=== PATIENT | male | born 1990 | race Caucasian/White ===

== ENCOUNTER 2019-03-20 09:27 | Emergency (ER) | payer BC ==
--- NOTE | 2019-03-20 09:32 | EDM.PDOC ---
ED HPI GENERAL MEDICAL PROBLEM - General Chief Complaint: Chest Pain Stated Complaint: chest pain, dizziness Time Seen by Provider: 03/20/19 09:27 Source of Information: Reports: Patient. Denies: Old Records (Note patient gave incorrect spelling of his first name with previous medical records to be merged to this record in the future. No Paper chart available.) History Limitations: Reports: No Limitations - History of Present Illness INITIAL COMMENTS - FREE TEXT/NARRATIVE: Patient was brought to the emergency room via private automobile by a coworker secondary to 6/10 left-sided chest pressure, which does radiate into the left shoulder and left arm. His symptoms started while lifting some heavy objects at about 07:00 a.m. this morning with no history of acute injury and similar chest pain-type symptoms on an intermittent basis during the last several months. His chest pain usually lasts for about 3 minutes and is associated with some nausea , diaphoresis, dizziness, and tachycardia. He has not taken any medications for his symptoms to this point. The patient denies any orthostasis, orthopnea, paresthesias, recent decreased exercise tolerance, or any other anginal-type symptoms. No recent history of abdominal pain, heartburn, emesis, diarrhea, melena, gross hematochezia, or any food intolerance, including fatty foods, etc. with normal bowel movement earlier this morning. He denies any gross hematuria, colic, or other UTI symptoms. The patient also denies any recent fever, cough, wheezing, dyspnea, etc.. Onset: Today, Sudden Onset Date: 03/20/19 Onset Time: 07:00 Duration: Intermittent Location: Reports: Chest, Upper Extremity, Left, Radiates to (As above). Denies : Head, Neck, Abdomen, Back, Pelvis, Upper Extremity, Right, Lower Extremity, Left, Lower Extremity, Right Quality: Reports: Pressure, Same as Previous Episode Severity: Moderate Improves with: Reports: None Worsens with: Reports: None Context: Reports: Other (As above). Denies: Sick Contact, Trauma Associated Symptoms: Reports: Chest Pain, Diaphoresis, Nausea/Vomiting (As above ). 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 Denies: Allergic Rhinitis, Hard of Hearing, Retinal Detachment Other HEENT History: Patient wears glasses. Cardiovascular History: Reports: Heart Murmur, Hypertension, Other (See Below). Denies: Aneurysm, Arrhythmia, Blood Clots/VTE/DVT, CAD, Cardiomyopathy, Heart Failure, High Cholesterol, Syncope Other Cardiovascular History: Unknown type of heart murmur initially diagnosed at age 13 but no heart workup to this point. Elevated blood pressure with no history medical therapy. Patient does not know his cholesterol status. Respiratory History: Reports: None. Denies: Asthma, Bronchitis, Recurrent, COPD , Intubation, Difficult, Intubation, Previous, PE, Pneumothorax, Sleep Apnea, TB Gastrointestinal History: Reports: None. Denies: Bowel Obstruction, Celiac Disease, Cholelithiasis, Chronic Constipation, Chronic Diarrhea, Gastritis, GERD , Hepatitis, Inflammatory Bowel Disease, Irritable Bowel Syndrome, Jaundice, Pancreatitis Genitourinary History: Reports: None. Denies: Acute Renal Failure, BPH, Chronic Renal Insuffiency, Renal Calculus, STD, Urinary Incontinence, UTI, Recurrent Musculoskeletal History: Reports: Fracture, Other (See Below). Denies: Amputation, Arthritis, Back Pain, Chronic, Gout, Neck Pain, Chronic, Osteoarthritis, RA, SLE Other Musculoskeletal History: Left Wrist fracture at age 21. Neurological History: Reports: Headaches, Chronic, Migraines, Neuropathy, Peripheral, Other (See Below). Denies: Cerebral Aneurysms, Concussion, CVA, Head Trauma, Parkinson's, Seizure, TIA, Vertigo Other Neuro History: Migraine headaches as a teenager currently not problematic. Psychiatric History: Reports: Addiction, Anxiety, Depression, Panic Attack, Psych Hospitalization(s), Suicidal Ideation, Other (See Below). Denies: Abuse, Victim of, ADD, ADHD, PTSD, Suicide Attempt Other Psychiatric History: Heroin, marijuana, methamphetamines, LSD DNT, ecstasy , cocaine, etc. addiction during ages 18 and 20 with no IV drug use and no use since that time. Continued suicidal ideation without plan with hospitalization for drug addiction at age 20. Alcohol abuse worsened during the last 3 months. Endocrine/Metabolic History: Denies: Diabetes, Type I, Diabetes, Type II, Hypothyroidism, IDDM, Obesity/BMI 30+ Hematologic History: Denies: Anemia, Blood Transfusion(s), Iron Deficiency Immunologic History: Reports: None. Denies: AIDS, HIV, SLE Oncologic (Cancer) History: Reports: None. Denies: Basal Cell Carcinoma, Hodgkin's Lymphoma, Leukemia, Lymphoma, Malignant Melanoma, Non-Hodgkin's Lymphoma, Squamous Cell Carcinoma Dermatologic History: Reports: None. Denies: Eczema, Psoriasis - Infectious Disease History Infectious Disease History: Reports: Chicken Pox. Denies: C-Difficile, Measles , Meningitis, Mononucleosis, MRSA, Mumps, Pertussis (Whooping Cough), Rheumatic Fever, Rubella, Scarlet Fever, Shingles, TB, VRE - Past Surgical History Head Surgeries/Procedures: Reports: None HEENT Surgical History: Reports: Oral Surgery. Denies: Adenoidectomy, Eye Surgery, Laser Surgery, LASIK, Myringotomy w Tube(s), Naso-Sinus Surgery, Tonsillectomy Other HEENT Surgeries/Procedures: Jol[place] teeth extraction 4 about age 13 with multiple teeth extractions Cardiovascular Surgical History: Reports: None. Denies: Varicose Respiratory Surgical History: Reports: None. Denies: Thoracentesis GI Surgical History: Reports: None. Denies: Appendectomy, Cholecystectomy, Colonoscopy, EGD, Hernia, Abdominal, Hernia, Inguinal, Hernia Repair/Other Male Surgical History: Reports: None. Denies: Circumcision, Vasectomy Endocrine Surgical History: Reports: None. Denies: Thyroid Biopsy Neurological Surgical History: Reports: None. Denies: C-Spine, Discectomy, Laminectomy, Lumbar Spine, Sacral Spine, Spinal Fusion, Thoracic Spine, Vertebroplasty Musculoskeletal Surgical History: Reports: None. Denies: Arthroscopic Procedure , Carpal Tunnel, Ganglion Cyst, Joint Replacement, ORIF, Shoulder Surgery Oncologic Surgical History: Reports: None Dermatological Surgical History: Reports: None - Past Imaging History Past Imaging History: Reports: None Social & Family History - Tobacco Use Smoking Status *Q: Current Every Day Smoker Tobacco Use Within Last Twelve Months: Cigarettes Years of Tobacco use: 9 Packs/Tins Daily: 1 Packs/Tins Daily Comment: Started Smoking at age 7. Used Tobacco, but Quit: No Smoking Cessation Information Provided To Patient: Yes Second Hand Smoke Exposure: No Second Hand Smoke Education Provided: No - Caffeine Use Caffeine Use: Reports: Coffee (Combined with energy drinks as above), Energy Drinks (4 cans per week), Tea (1 glass per month). Denies: Soda - Alcohol Use Alcohol Use History: Yes Days Per Week of Alcohol Use: 5 Number of Drinks Per Day: 12 Number of Drinks Per Day Comment: Usually beer. Alcohol abuse as above. No previous DWIs or alcohol treatment. Total Drinks Per Week: 60 Alcohol Use in Last Twelve Months: Yes Alcohol Use Frequency: Binges - Recreational Drug Use Recreational Drug Use: Yes Drug Use in Last 12 Months: No Recreational Drug Type: Reports: Amphetamines (Speed), Cocaine, Heroin, LSD ( Acid), Marijuana/Hashish, Methamphetamine, Other (see below) (As above) - Living Situation & Occupation Living situation: Reports: Single (With one child from a previous significant other relationship.), Alone. Denies: Occupation: Employed ([employer]) ED ROS GENERAL - Review of Systems Review Of Systems: Comprehensive ROS is negative, except as noted in HPI. ED EXAM, GENERAL - Physical Exam Exam: See Below Exam Limited By: No Limitations General Appearance: Alert, No Apparent Distress, Anxious (Moderate) Eye Exam: Bilateral Eye: EOMI, Normal Inspection (Patient wears glasses. No nystagmus), PERRL Ears: Normal External Exam, Normal Canal, Hearing Grossly Normal, Normal TMs Nose: Normal Inspection, Normal Mucosa, No Blood Throat/Mouth: Normal Inspection, Normal Lips, Normal Teeth (Occasional missing teeth), Normal Gums, Normal Oropharynx, Normal Voice, No Airway Compromise. No : Dysphagia, Perioral Cyanosis Head: Atraumatic, Normocephalic. No: Facial Swelling, Facial Tenderness, Sinus Tenderness Neck: Normal Inspection, Supple, Non-Tender, Full Range of Motion. No: Carotid Bruit, Lymphadenopathy (L), Lymphadenopathy (R), Thyromegaly Respiratory/Chest: No Respiratory Distress, Lungs Clear, Normal Breath Sounds, No Accessory Muscle Use, Chest Non-Tender. No: Pleural Rub, Retractions Cardiovascular: Normal Peripheral Pulses, No Edema, No Gallop, No JVD, No Murmur , No Rub, Tachycardia (Regular rhythm). No: Gallop/S3, Gallop/S4, Friction Rub Peripheral Pulses: 2+: Radial (L), Radial (R), Dorsalis Pedis (L), Dorsalis Pedis (R) GI/Abdominal: Normal Bowel Sounds, Soft, Non-Tender, No Organomegaly, No Distention, No Abnormal Bruit, No Mass, Pelvis Stable. No: Guarding (Male) Exam: Deferred Rectal (Males) Exam: Deferred Back Exam: Normal Inspection, Full Range of Motion. No: CVA Tenderness (L), CVA Tenderness (R), Muscle Spasm Extremities: Normal Inspection, Normal Range of Motion, Non-Tender, No Pedal Edema, Normal Capillary Refill. No: Danny's Sign Neurological: Alert, Oriented, CN II-XII Intact, Normal Cognition, Normal Gait, Normal Reflexes (Negative Babinski's), No Motor/Sensory Deficits Psychiatric: Anxious (Moderate), Depressed Mood (Borderline) Skin Exam: Warm, Dry, Intact, Normal Color, No Rash, Tattoo(s) (Multiple). No: Diaphoretic, Wound/Incision Lymphatic: No Adenopathy EKG INTERPRETATION EKG Date: 03/20/19 Time: 09:31 Rhythm: Other (Sinus tachycardia) Rate (Beats/Min): 102 [place]: Normal P-Wave: Present (With extreme poor R-wave progression in the anterior leads) QRS: Normal (0.09 seconds) ST-T: Normal QT: Normal CA/PQ Interval: 0.15 seconds Comparison: NA - No Prior EKG EKG Interpretation Comments: 1. No acute ischemic changes 2. Sinus tachycardia Course - Vital Signs Last Recorded V/S: Last Vital Signs Temp 37.1 C 03/20/19 09:28 Pulse 86 03/20/19 10:40 Resp 15 03/20/19 10:40 BP 139/92 H 03/20/19 10:40 Pulse Ox 98 03/20/19 10:40 Vital Signs - 24 hr 03/20/19 03/20/19 03/20/19 09:28 09:47 09:55 Temperature [ 37.1 C Temporal] Pulse, 104 H Peripheral Pulse, 111 H 89 Peripheral [ Pulse Oximetry] Respiratory 20 15 Rate Blood Pressure 165/96 H Blood Pressure 160/92 H 141/91 H [Left Arm] O2 Sat by Pulse 100 98 Oximetry 03/20/19 03/20/19 10:20 10:40 Temperature [ Temporal] Pulse, Peripheral Pulse, 88 86 Peripheral [ Pulse Oximetry] Respiratory 15 15 Rate Blood Pressure Blood Pressure 127/98 H 139/92 H [Left Arm] O2 Sat by Pulse 98 98 Oximetry - Orders/Labs/Meds Orders: Active Orders 24 hr Category Date Time Status Cardiac Monitoring [RC] . DIRECTED Care 03/20/19 09:32 Active EKG Documentation Completion [RC] ASDIRECTED Care 03/20/19 09:32 Active Oxygen Therapy, ED [RC] PRN Care 03/20/19 09:32 Active Peripheral IV Care [RC] . DIRECTED Care 03/20/19 09:32 Active Pulse Oximetry [RC] CONTINUOUS Care 03/20/19 09:32 Active Up With Assistance [RC] PFP Care 03/20/19 09:32 Active Vital Signs [RC] PFP Care 03/20/19 09:32 Active Chest 1V Frontal [CR] Stat Exams 03/20/19 09:32 Taken Obtain Past Medical Record [OM.PC] Urgent Oth 03/20/19 09:32 Active Peripheral IV Insertion Adult [OM.PC] Stat Oth 03/20/19 09:32 Ordered Resuscitation Status Stat Resus Stat 03/20/19 09:32 Ordered Labs: Laboratory Tests 03/20/19 03/20/19 03/20/19 Range/Units 09:35 09:35 09:35 WBC 5.0 (4.0-10.2) K/uL RBC 4.86 (4.33-5.41) M/uL Hgb 15.0 (13.1-16.8) g/dL Hct 45.0 (39.0-49.0) % MCV 92.6 (84.0-98.0) fL MCH 30.9 (28.2-33.3) pg MCHC 33.3 (31.7-36.0) g/dL RDW 12.9 (11.2-14.1) % Plt Count 259 (150-350) K/uL Neut % (Auto) 56.8 (45.0-80.0) % Lymph % (Auto) 34.9 (10.0-50.0) % [place] % (Auto) 6.5 (2.0-14.0) % Eos % (Auto) 1.6 (0.0-5.0) % Baso % (Auto) 0.2 (0.0-2.0) % Neut # (Auto) 2.86 (1.40-7.00) K/uL Lymph # (Auto) 1.76 (0.50-3.50) K/uL [place] # (Auto) 0.33 (0.00-1.00) K/uL Eos # (Auto) 0.08 (0.00-0.50) K/uL Baso # (Auto) 0.01 (0.00-0.20) K/uL PT 10.1 (9.5-12.0) SEC INR 0.9 APTT 28.5 (21.0-31.3) SEC D-Dimer, Quantitative < 100 (0-400) ng/mL Sodium (136-145) mmol/L Potassium (3.5-5.1) mmol/L Chloride (98-107) mmol/L Carbon Dioxide (21.0-32.0) mmol/L BUN (7-18) mg/dL Creatinine (0.51-1.17) mg/dL Est Cr Clr Drug Dosing Estimated GFR (MDRD) mL/min Glucose (74-106) mg/dL Lactic Acid (0.4-2.0) mmol/L Uric Acid (2.6-7.2) mg/dL Calcium (8.5-10.1) mg/dL Magnesium (1.8-2.4) mg/dL Total Bilirubin (0.2-1.0) mg/dL AST (15-37) U/L ALT (12-78) U/L Alkaline Phosphatase (46-116) IU/L Creatine Kinase (26-308) U/L Creatine Kinase Index (0.0-2.5) % CK-MB (CK-2) (0.00-3.60) ng/mL Troponin I (0.000-0.056) ng/mL NT-Pro-B Natriuret Pep (0-125) pg/mL Total Protein (6.4-8.2) g/dL Albumin (3.4-5.0) g/dL TSH, Ultra Sensitive (0.358-3.740) mIU/mL 03/20/19 03/20/19 Range/Units 09:35 09:35 WBC (4.0-10.2) K/uL RBC (4.33-5.41) M/uL Hgb (13.1-16.8) g/dL Hct (39.0-49.0) % MCV (84.0-98.0) fL MCH (28.2-33.3) pg MCHC (31.7-36.0) g/dL RDW (11.2-14.1) % Plt Count (150-350) K/uL Neut % (Auto) (45.0-80.0) % Lymph % (Auto) (10.0-50.0) % [place] % (Auto) (2.0-14.0) % Eos % (Auto) (0.0-5.0) % Baso % (Auto) (0.0-2.0) % Neut # (Auto) (1.40-7.00) K/uL Lymph # (Auto) (0.50-3.50) K/uL [place] # (Auto) (0.00-1.00) K/uL Eos # (Auto) (0.00-0.50) K/uL Baso # (Auto) (0.00-0.20) K/uL PT (9.5-12.0) SEC INR APTT (21.0-31.3) SEC D-Dimer, Quantitative (0-400) ng/mL Sodium 145 (136-145) mmol/L Potassium 3.9 (3.5-5.1) mmol/L Chloride 104 (98-107) mmol/L Carbon Dioxide 30.2 (21.0-32.0) mmol/L BUN 15 (7-18) mg/dL Creatinine 0.95 (0.51-1.17) mg/dL Est Cr Clr Drug Dosing TNP Estimated GFR (MDRD) > 60 mL/min Glucose 97 (74-106) mg/dL Lactic Acid 1.9 (0.4-2.0) mmol/L Uric Acid 5.3 (2.6-7.2) mg/dL Calcium 9.0 (8.5-10.1) mg/dL Magnesium 2.0 (1.8-2.4) mg/dL Total Bilirubin 0.4 (0.2-1.0) mg/dL AST 52 H (15-37) U/L ALT 58 (12-78) U/L Alkaline Phosphatase 62 (46-116) IU/L Creatine Kinase 191 (26-308) U/L Creatine Kinase Index 0.5 (0.0-2.5) % CK-MB (CK-2) 1.00 (0.00-3.60) ng/mL Troponin I 0.000 (0.000-0.056) ng/mL NT-Pro-B Natriuret Pep 5 (0-125) pg/mL Total Protein 7.9 (6.4-8.2) g/dL Albumin 4.6 (3.4-5.0) g/dL TSH, Ultra Sensitive 3.364 (0.358-3.740) mIU/mL Meds: Medications Discontinued Medications Generic Name Dose Route Start Last Admin Trade Name Freq PRN Reason Stop Dose Admin Aspirin 324 mg 03/20/19 09:32 03/20/19 09:46 Aspirin CHEW 03/20/19 09:33 324 mg ONETIME ONE Administration Famotidine 40 mg 03/20/19 09:32 03/20/19 09:51 Pepcid IVPUSH 03/20/19 09:33 40 mg ONETIME ONE Administration Metoprolol Tartrate 2.5 mg 03/20/19 09:32 03/20/19 09:47 Lopressor IVPUSH 03/20/19 09:33 2.5 mg ONETIME ONE Administration Sodium Chloride 10 ml 03/20/19 09:32 03/20/19 09:56 Saline Flush FLUSH 10 ml ASDIRECTED PRN Administration Keep Vein Open Ticagrelor 180 mg 03/20/19 09:32 03/20/19 09:46 Brilinta PO 03/20/19 09:33 180 mg ONETIME ONE Administration - Radiology Interpretation Free Text/Narrative:: Heart monitor shows borderline sinus tachycardia with heart rate initially in the 110s with improvement to the 90s prior to administration of IV Lopressor. No other ectopy or arrhythmia. Chest x-ray, portable, shows evidence of borderline pulmonary obstructive disease with mild prominence of the proximal aortic arch but no cardiomegaly, CHF, pulmonary infiltrates, pneumothorax, etc. Departure - Departure Time of Disposition: 10:56 Disposition: Home, Self-Care 01 Condition: Fair Clinical Impression: Tachycardia, Elevated LFTs, Elevated blood pressure reading, Mixed anxiety and depressive disorder, Tobacco abuse counseling Chest pain Qualifiers: Chest pain type: unspecified Qualified Code(s): R07.9 - Chest pain, unspecified Prescriptions: atenoloL [Tenormin] 25 mg PO DAILY #14 tab Citalopram Hydrobromide [Celexa] 20 mg PO DAILY #14 tablet Instructions: Health Risks of Smoking, Smoking Tobacco Information, Adult, Nonspecific Chest Pain, [id number], Hypertension, [id number] Referrals: PCP,Unknown [Primary Care Provider] - Forms: ED Department Discharge, ED Return to Work/School Form Additional Instructions: 1. Establish a new primary care provider in the area as discussed. 2. Follow-up with your new regular provider as scheduled by our ER nurses at 9 AM on 03/[address] Richards with recommended repeat LFTs and 12 hour fasting lipid profile 3. Work excuse- See Form 4. Close follow-up with your regular provider concerning current stressors, including new medical therapy, possible counseling, etc. 5. Further heart workup depending on your clinical course 6. Continue to observe your blood pressures closely through your regular provider 7. Stop all tobacco and alcohol use BARBI as directed/per provided information and consider contacting [facility], etc.. This may be delayed until your emotional status has improved. 8. Immediately after this visit verify that your cellular telephone's voicemail has been activated and is empty. Also verify that your home telephone 's answering machine is operating properly and has space to receive messages. Note that it is sometimes necessary for us to be able to contact you at a later date to discuss your medical care. 9. Please remember that we are ALWAYS here for you and want to answer any questions you may have. Feel free to call the hospital any time and we call you back BARBI. Sepsis Event Note - Focused Exam Vital Signs: Vital Signs Temp Pulse Pulse Resp BP BP Pulse Ox 03/20/19 10:40 86 15 139/92 H 98 03/20/19 10:20 88 15 127/98 H 98 03/20/19 09:55 89 15 141/91 H 98 03/20/19 09:47 104 H 165/96 H 03/20/19 09:28 37.1 C 111 H 20 160/92 H 100 Date Exam was Performed: 03/20/19 Time Exam was Performed: 13:01 - Problem List & Annotations (1) Chest pain SNOMED Code(s): 25450536 Code(s): R07.9 - CHEST PAIN, UNSPECIFIED Status: Acute Priority: High Onset Date: ~03/20/19 Annotation/Comment:: Long history of atypical chest pain as above. No direct indication of cardiac etiology to his current symptoms with significant current anxiety component. Repeat EKG and cardiac enzymes today. Continue to observe closely by you regular provider. Qualifiers: Chest pain type: unspecified Qualified Code(s): R07.9 - Chest pain, unspecified (2) Mixed anxiety and depressive disorder SNOMED Code(s): 110572968 Code(s): F41.8 - OTHER SPECIFIED ANXIETY DISORDERS Status: Acute Priority : High Onset Date: 03/20/19 Annotation/Comment:: Severe mixed anxiety and depression disorder, including suicidal ideation without plan and also panic attacks. Note distant illicit drug abuse, which he denies currently using. He does admit to significant alcohol problems during the last several months secondary to breaking up with his girlfriend. No evidence of alcohol intoxication, etc. today. Extensive emotional support was provided. Patient does agree to establish a new local primary care provider with probable referral for counseling. He does agree to start Celexa therapy with two-week prescription provided, and the patient reminded that may not have follow-up refills through the emergency room. (3) Tachycardia SNOMED Code(s): 0894262 Code(s): R00.0 - TACHYCARDIA, UNSPECIFIED Status: Acute Priority: High Onset Date: 03/20/19 Annotation/Comment:: Anxiety component as above. Low- dose Tenormin as above. (4) Elevated LFTs SNOMED Code(s): 147879515, 808171771 Code(s): R94.5 - ABNORMAL RESULTS OF LIVER FUNCTION STUDIES Status: Acute Priority: Medium Onset Date: 03/20/19 Annotation/Comment:: Possibly secondary to either fatty liver or his current alcohol abuse. Continue to observe closely by his regular provider. (5) Elevated blood pressure reading SNOMED Code(s): 51103560 Code(s): R03.0 - ELEVATED BLOOD-PRESSURE READING, W/O DIAGNOSIS OF HTN Status: Acute Priority: High Onset Date: 03/20/19 Annotation/Comment:: Previous history of elevated blood pressures by his history with no previous medical therapy. Anxiety component with additional tachycardia noted today. Low- dose Tenormin for now with close observation and follow-up by his regular provider as per discharge instructions. (6) Tobacco abuse counseling SNOMED Code(s): 820732909, 592574549, 676273055 Code(s): Z71.6 - TOBACCO ABUSE COUNSELING Status: Chronic Priority: Medium Annotation/Comment:: Tobacco cessation encouraged, which may be delayed until his emotional status has improved. Tobacco cessation information given at discharge. - Problem List Review Problem List Initiated/Reviewed/Updated: Yes - My Orders Last 24 Hours: My Active Orders 03/20/19 09:32 Cardiac Monitoring [RC] . DIRECTED EKG Documentation Completion [RC] ASDIRECTED Oxygen Therapy, ED [RC] PRN Peripheral IV Care [RC] . DIRECTED Pulse Oximetry [RC] CONTINUOUS Up With Assistance [RC] PFP Vital Signs [RC] PFP Chest 1V Frontal [CR] Stat Obtain Past Medical Record [OM.PC] Urgent Peripheral IV Insertion Adult [OM.PC] Stat Resuscitation Status Stat - Assessment/Plan Last 24 Hours: My Active Orders 03/20/19 09:32 Cardiac Monitoring [RC] . DIRECTED EKG Documentation Completion [RC] ASDIRECTED Oxygen Therapy, ED [RC] PRN Peripheral IV Care [RC] . DIRECTED Pulse Oximetry [RC] CONTINUOUS Up With Assistance [RC] PFP Vital Signs [RC] PFP Chest 1V Frontal [CR] Stat Obtain Past Medical Record [OM.PC] Urgent Peripheral IV Insertion Adult [OM.PC] Stat Resuscitation Status Stat Assessment:: As above Plan: As above. Extensive precautions were given to the patient, who is in agreement with the treatment plan. See Patient Instructions for further treatment and plan.
[2019-03-20] MEDS: Aspirin 81 MG Tab.Chew CHEW ONE (09:46)
[2019-03-20] MEDS: Ticagrelor 90 MG Tab PO ONE (09:46)
[2019-03-20] MEDS: Metoprolol Tartrate 5 MG/5 ML SDV IVPUSH ONE (09:47)
[2019-03-20] MEDS: Famotidine 20 MG/2 ML SDV IVPUSH ONE (09:51)
[2019-03-20] MEDS: Sodium Chloride 0.9% 10 ML Syringe FLUSH PRN (09:56)
[2019-03-20 10:05] LABS: CHLORIDE,CL 104 mmol/L (98-107); SODIUM,NA 145 mmol/L (136-145)
[2019-03-20 11:19] VITALS: BP 139/92; PULSE 86
== END 2019-03-20 10:55 | disposition home or self-care (01) ==
LOC: MERGE 09:27 → LL.ED 09:27
DX: R00.0 Tachycardia, unspecified (principal); R07.9 Chest pain, unspecified; F41.8 Other specified anxiety disorders; Z71.6 Tobacco abuse counseling; F17.210 Nicotine dependence, cigarettes, uncomplicated; R79.89 Other specified abnormal findings of blood chemistry; R91.8 Other nonspecific abnormal finding of lung field; E10.42 Type 1 diabetes mellitus with diabetic polyneuropathy; I10 Essential (primary) hypertension; Z79.899 Other long term (current) drug therapy
CPT/HCPCS: 36415; 71045; 80053; 82550; 82553; 83605; 83735; 83880; 84443; 84484; 84550; 85025; 85379; 85610; 85730; 93005; 96374; 96375; 99285-25; A9270-GY; J3490

== ENCOUNTER 2021-12-11 14:13 | Emergency (ER) | payer BC, OTHER ==
[2021-12-11 14:29] VITALS: BP 149/91; PULSE 91
== END 2021-12-11 15:15 | disposition home or self-care (01) ==
LOC: LL.ED 14:13
DX: S62.663A Nondisplaced fracture of distal phalanx of left middle finger, initial encounter for closed fracture (principal); I10 Essential (primary) hypertension; W23.1XXA Caught, crushed, jammed, or pinched between stationary objects, initial encounter
CPT/HCPCS: 73140-F2; 99283